=== PATIENT | female | born 1985 | race Caucasian/White ===

== ENCOUNTER 2024-03-17 11:05 | Emergency (ER) | payer OTHER ==
[2024-03-17 12:24] LABS: HEMATOCRIT 37.4 % (36.0-47.0); MEAN CORPUSCULAR HGB CONC 34.8 g/dl (32.0-36.5); MEAN CORPUSCULAR VOLUME 92.1 fl (80.0-96.0); PLATELET COUNT, AUTOMATED 157 10^3/uL (150-450); RED BLOOD COUNT 4.06 10^6/uL (4.00-5.40); WHITE BLOOD COUNT 13.4 10^3/uL (4.0-10.0)
[2024-03-17] MEDS: ONDANSETRON 4MG 2ML VIAL IV ONE (12:24)
[2024-03-17] MEDS: KETOROLAC 30 MG/ML 1ML VIAL IV ONE (12:25)
[2024-03-17] MEDS: ACETAMINOPHEN *IV* 1,000 MG in IV 1 EA IV ONE (12:25)
[2024-03-17 12:44] LABS: BLOOD UREA NITROGEN 13 MG/DL (9-23); CALCIUM LEVEL 8.6 MG/DL (8.5-10.1); CARBON DIOXIDE LEVEL 24 MMOL/L (20-31); CHLORIDE LEVEL 105 MMOL/L (98-107); CK-MB VALUE MASS < 1.0 NG/ML (<3.6); GLOMERULAR FILTRATION RATE > 60.0 (>60); GLUCOSE, FASTING 114 MG/DL (60-100); POTASSIUM SERUM 3.7 MMOL/L (3.5-5.1); SODIUM LEVEL 137 MMOL/L (136-145)
[2024-03-17 12:45] LABS: CPK CREATINE PHOSPHOKINASE 57 U/L (34-145); MB/CK RELATIVE INDEX 1.75 (< OR =4)
[2024-03-17 12:56] LABS: ATYPICAL LYMPH 3 % (0-5); LYMPHOCYTES 2 % (16-44); MONOCYTES 5 % (0-5); NEUTROPHILS 66 % (28-66)
[2024-03-17 12:57] LABS: PLATELET ESTIMATE NORMAL (NORMAL)
[2024-03-17] MEDS ORDERED: ISOVUE-370 76% 100ML VIAL As Ordered ONE (13:07)
[2024-03-17 13:45] VITALS: TEMP 99.9
[2024-03-17] MEDS: AZITHROMYCIN 250MG TABLET PO ONE (14:04)
[2024-03-17 14:30] VITALS: O2SAT 97
[2024-03-17] MEDS ORDERED: ONDA-282 PO (14:42)
[2024-03-17] MEDS ORDERED: AZIT-12 PO (14:42)
[2024-03-17 14:45] VITALS: BP 92/54
[2024-03-17] MEDS: ONDANSETRON 4MG ORAL DISINTEGRATING TAB PO ONE (14:45)
[2024-03-17 14:50] VITALS: O2SAT 98
== END 2024-03-17 15:10 | disposition home or self-care (01) ==
LOC: M ED 11:05
DX: J18.1 Lobar pneumonia, unspecified organism (principal); R00.0 Tachycardia, unspecified; I45.10 Unspecified right bundle-branch block; Z88.0 Allergy status to penicillin; Z88.2 Allergy status to sulfonamides; Z88.5 Allergy status to narcotic agent; Z79.2 Long term (current) use of antibiotics; Z79.899 Other long term (current) drug therapy
CPT/HCPCS: 71045; 71275; 80048; 82550; 82553; 84484; 85025; 93005; 93041; 94760; 96374; 96375; 99285; J0131; J1885; J2405; Q9967